=== PATIENT | female | born 1985 | race Caucasian/White ===

== ENCOUNTER 2017-01-24 09:25 | Emergency (ER) | payer OTHER ==
[2017-01-24] MEDS ORDERED: NORMAL SALINE 1000 ML 1,000 ML IV ONE (09:41)
[2017-01-24] MEDS ORDERED: ACETAMINOPHEN 325 MG TABLET PO ONE (09:41)
--- NOTE | 2017-01-24 09:42 | ER Document Report ---
ED Medical Screen (RME) - General Chief Complaint: Flank Pain Stated Complaint: RIGHT SIDE FLANK PAIN Time Seen by Provider: 01/24/17 09:38 Mode of Arrival: Ambulatory Information source: Patient Notes: This is a 31-year-old female who presents with fever and right flank pain. She states that for the past few days she has had dysuria and discomfort in her right flank. Last night she developed fevers and chills. She took ibuprofen at about 8:00 this morning. She has vomited today. She states this feels similar to her prior pyelonephritis 3 years ago. I have greeted and performed a rapid initial assessment of this patient. A comprehensive ED assessment and evaluation of the patient, analysis of test results and completion of the medical decision making process will be conducted by additional ED providers. TRAVEL OUTSIDE OF THE [place] IN LAST 30 DAYS: No - Related Data Allergies/Adverse Reactions: No Known Allergies Allergy (Verified 01/24/17 09:31) Past Medical History - Past Medical History Cardiac Medical History: Reports: Hx Hypercholesterolemia Denies: Hx Coronary Artery Disease, Hx Heart Attack, Hx Hypertension Pulmonary Medical History: Reports: Hx Asthma, Hx Bronchitis - in the past , Hx Pneumonia Denies: Hx COPD Neurological Medical History: Denies: Hx Cerebrovascular Accident, Hx Seizures Renal/ Medical History: Reports: Hx Ovarian Cysts. Denies: Hx Peritoneal Dialysis Musculoskeltal Medical History: Denies Hx Arthritis, Reports Hx Musculoskeletal Trauma Psychiatric Medical History: Reports: Hx Depression Traumatic Medical History: Reports: Hx Fractures Past Surgical History: Reports: Hx Cholecystectomy, Hx Orthopedic Surgery - Left Arm. Denies: Hx Hysterectomy, Hx Pacemaker - Immunizations Immunizations up to date: Yes Hx Diphtheria, Pertussis, Tetanus Vaccination: Yes Physical Exam - Vital signs Vitals: Temp Pulse Resp BP Pulse Ox 101.6 F H 125 H 20 122/79 97 01/24/17 09:31 01/24/17 09:31 01/24/17 09:31 01/24/17 09:31 01/24/17 09:31 - General Notes: somewhat ill appearing with chills, pleasant and conversant - Respiratory Respiratory status: No respiratory distress Breath sounds: Normal. No: Rales, Rhonchi, Wheezing - Cardiovascular Rhythm: Tachycardia Heart sounds: Normal auscultation, S1 appreciated, S2 appreciated Course - Vital Signs Vital signs: Temp Pulse Resp BP Pulse Ox 101.6 F H 125 H 20 122/79 97 01/24/17 09:31 01/24/17 09:31 01/24/17 09:31 01/24/17 09:31 01/24/17 09:31
[2017-01-24 10:16] LABS: HEMATOCRIT 38.8 % (36.0-47.0); HEMOGLOBIN 13.1 g/dL (12.0-15.5); HGB HCT DIFFERENCE 0.5; MEAN CORPUSCULAR HGB CONC 33.8 g/dL (32.0-36.0); MEAN CORPUSCULAR VOLUME 92 fl (80-97); RED BLOOD COUNT 4.24 10^6/uL (3.72-5.28); RED CELL DISTRIBUTION WIDTH 13.4 % (11.5-14.0); WHITE BLOOD COUNT 7.6 10^3/uL (4.0-10.5)
[2017-01-24 10:39] LABS: ALANINE AMINOTRANSFERASE 28 U/L (9-52); ALBUMIN 3.9 g/dL (3.5-5.0); ALKALINE PHOSPHATASE 115 U/L (38-126); ANION GAP 14 (5-19); ASPARTATE AMINO TRANSFERASE 26 U/L (14-36); BILIRUBIN,DIRECT 0.3 mg/dL (0.0-0.4); BILIRUBIN,TOTAL 0.7 mg/dL (0.2-1.3); BLOOD UREA NITROGEN 9 mg/dL (7-20); CALCIUM 9.7 mg/dL (8.4-10.2); CARBON DIOXIDE 18 mmol/L (22-30); CHLORIDE 105 mmol/L (98-107); CREATININE RESULT 0.72 mg/dL (0.52-1.25); GLUCOSE 120 mg/dL (75-110); POTASSIUM 3.8 mmol/L (3.6-5.0); TOTAL PROTEIN 6.7 g/dL (6.3-8.2)
[2017-01-24 10:52] LABS: BAND NEUTROPHILS % (MANUAL) 5 % (3-5); BASOPHILS % (MANUAL) 1 % (0-2); EOSINOPHILS % (MANUAL) 0 % (0-6); LYMPHOCYTES % (MANUAL) 4 % (13-45); TOTAL CELLS COUNTED 100
[2017-01-24 10:53] LABS: POLYCHROMASIA SLIGHT; TOXIC GRANULATION 1+; TOXIC VACUOLATION PRESENT
[2017-01-24] MEDS ORDERED: CEFTRIAXONE 1 GM/D5W RTU 50 ML IV ONE (10:59)
[2017-01-24] MEDS ORDERED: KETOROLAC TROMETHAMINE INJ/PF 30 MG/1 ML SDV IV ONE (10:59)
--- NOTE | 2017-01-24 11:00 | ER Document Report ---
ED GI/ - General Chief Complaint: Flank Pain Stated Complaint: RIGHT SIDE FLANK PAIN Time Seen by Provider: 01/24/17 09:38 Mode of Arrival: Ambulatory Information source: Patient Notes: Is a 31-year-old female who presents to the ER today for right flank pain, dysuria, fever, chills 3 days. Patient has a history of pyelonephritis and states that it feels exactly like that. She has never had a kidney stone. She denies any hematuria that she is noticed. She denies any abdominal pain. TRAVEL OUTSIDE OF THE [place] IN LAST 30 DAYS: No - Related Data Allergies/Adverse Reactions: No Known Allergies Allergy (Verified 01/24/17 09:31) Past Medical History - General Information source: Patient - Social History Smoking Status: Unknown if Ever Smoked Family History: Reviewed & Not Pertinent Patient has suicidal ideation: No Patient has homicidal ideation: No - Past Medical History Cardiac Medical History: Reports: Hx Hypercholesterolemia Denies: Hx Coronary Artery Disease, Hx Heart Attack, Hx Hypertension Pulmonary Medical History: Reports: Hx Asthma, Hx Bronchitis - in the past , Hx Pneumonia Denies: Hx COPD Neurological Medical History: Denies: Hx Cerebrovascular Accident, Hx Seizures Renal/ Medical History: Reports: Hx Ovarian Cysts. Denies: Hx Peritoneal Dialysis Musculoskeltal Medical History: Denies Hx Arthritis, Reports Hx Musculoskeletal Trauma Psychiatric Medical History: Reports: Hx Depression Traumatic Medical History: Reports: Hx Fractures Past Surgical History: Reports: Hx Cholecystectomy, Hx Orthopedic Surgery - Left Arm. Denies: Hx Hysterectomy, Hx Pacemaker - Immunizations Immunizations up to date: Yes Hx Diphtheria, Pertussis, Tetanus Vaccination: Yes Review of Systems - Review of Systems Constitutional: See HPI EENT: No symptoms reported Cardiovascular: No symptoms reported Respiratory: No symptoms reported Gastrointestinal: No symptoms reported Genitourinary: See HPI Female Genitourinary: No symptoms reported Musculoskeletal: No symptoms reported Skin: No symptoms reported Hematologic/Lymphatic: No symptoms reported Neurological/Psychological: No symptoms reported Physical Exam - Vital signs Vitals: Temp Pulse Resp BP Pulse Ox 101.6 F H 125 H 20 122/79 97 01/24/17 09:31 01/24/17 09:31 01/24/17 09:31 01/24/17 09:31 01/24/17 09:31 - Notes Notes: 1flonasemotrin 800 PHYSICAL EXAMINATION: GENERAL: Mildly ill-appearing, but in no acute distress. HEAD: Atraumatic, normocephalic. EYES: Pupils equal round and reactive to light, extraocular movements intact, sclera anicteric, conjunctiva are normal. NECK: Normal range of motion, supple without lymphadenopathy LUNGS: CTAB and equal. No wheezes rales or rhonchi. HEART: Regular rate and rhythm without murmurs ABDOMEN: Soft, no tenderness. No guarding, no rebound BACK: no vertebral tenderness, normal ROM GI/: Right CVA tenderness EXTREMITIES: Normal range of motion, no pitting edema. No cyanosis. NEUROLOGICAL: Cranial nerves grossly intact. Normal sensory/motor exams. PSYCH: Normal mood, normal affect. SKIN: Warm, Dry, normal turgor, no rashes or lesions noted Course - Re-evaluation Re-evalutation: 01/24/17 16:00 White count is normal today, patient is febrile, Tylenol reduced fever here in the emergency department, infection present on urinalysis with leukocytes and 98 white blood cells, patient technically met sepsis criteria on arrival with fever and tachycardia, however once the fever was reduced tachycardia was resolved, patient clinically looks only mildly ill-appearing and I think she will tolerate oral antibiotics well. She states that she was on oral antibiotics in the past for pyelonephritis which worked well for her. She has not vomited here in the emergency department. Lactic acid did get redrawn and was normal. - Vital Signs Vital signs: Temp Pulse Resp BP Pulse Ox 98.0 F 73 17 128/74 H 99 01/24/17 12:23 01/24/17 16:25 01/24/17 16:25 01/24/17 16:25 01/24/17 16:25 - Laboratory Result Diagrams: 01/24/17 09:58 01/24/17 09:58 Laboratory results interpreted by me: 01/24/17 01/24/17 01/24/17 09:45 09:58 09:58 Seg Neuts % (Manual) 90 H Lymphocytes % (Manual) 4 L Monocytes % (Manual) 0 L Abs Lymphs (Manual) 0.3 L Abs Monocytes (Manual) 0.0 L Carbon Dioxide 18 L Glucose 120 H Lactic Acid Urine Blood MODERATE H Ur Leukocyte Esterase MODERATE H 01/24/17 10:47 Seg Neuts % (Manual) Lymphocytes % (Manual) Monocytes % (Manual) Abs Lymphs (Manual) Abs Monocytes (Manual) Carbon Dioxide Glucose Lactic Acid 2.6 H Urine Blood Ur Leukocyte Esterase Discharge - Discharge Clinical Impression: Pyelonephritis Condition: Stable Disposition: HOME, SELF-CARE Instructions: Pyelonephritis (OM) Additional Instructions: Return immediately for any new or worsening symptoms. Follow up with primary care provider, call tomorrow to make followup appointment. Prescriptions: Ketorolac Tromethamine [Toradol 10 mg Tablet] 10 mg PO Q6HP PRN #30 tablet PRN Reason: Ciprofloxacin HCl [Cipro 500 mg Tablet] 500 mg PO BID #20 tablet Forms: Return to Work
[2017-01-24 11:04] LABS: APPEARANCE,URINE SLIGHTLY-CLOUDY; BILIRUBIN,URINE NEGATIVE (NEGATIVE); GLUCOSE, URINE NEGATIVE (NEGATIVE); KETONES,URINE NEGATIVE (NEGATIVE); LEUKOCYTE ESTERASE,URINE MODERATE (NEGATIVE); NITRITE,URINE NEGATIVE (NEGATIVE); PROTEIN,URINE NEGATIVE (NEGATIVE); URINE SPECIFIC GRAVITY 1.009; UROBILINOGEN,URINE NEGATIVE mg/dL (<2.0)
[2017-01-24] MEDS ORDERED: HYDROCODONE/ACETAMINOPHEN 5-325 MG 6 TAB/DSPK PO PRN (16:03)
[2017-01-24 16:26] VITALS: BP 128/74
--- NOTE | 2017-01-25 00:23 | ER Document Report ---
Doctor's Note Notes: 01/25/17 00:22 Asked by nurse to review positive blood cultures on patient was discharged earlier today. Gram-negative rods on blood cultures 2. Review of the chart shows that she initially was concerned about sepsis fever and pyelonephritis. At this point we contacted the patient at home and left a voicemail message to call us back.
== END 2017-01-24 16:25 | disposition home or self-care (01) ==
LOC: ER 09:25
DX: N12 Tubulo-interstitial nephritis, not specified as acute or chronic (principal); R10.9 Unspecified abdominal pain; R30.0 Dysuria; R50.9 Fever, unspecified; E78.00 Pure hypercholesterolemia, unspecified; Z90.49 Acquired absence of other specified parts of digestive tract
CPT/HCPCS: 99284; 96375; 96365; 36415; 87040; 87086; 84703; 85025; 87077; 87088; 80053; 81001; 87186; 83605; J1885; J7030; J0696

== ENCOUNTER 2017-01-25 01:02 | Inpatient (IN) | payer OTHER ==
[2017-01-25] MEDS ORDERED: CEFTRIAXONE INJ 1000 MG VIAL IV ONE (01:51)
--- NOTE | 2017-01-25 02:13 | ER Document Report ---
ED General - General Mode of Arrival: Ambulatory Information source: Patient TRAVEL OUTSIDE OF THE [place] IN LAST 30 DAYS: No <MARIA L MEEKS - Last Filed: 01/25/17 04:09> <LUCITA HAMILTON - Last Filed: 02/06/17 11:22> - General Chief Complaint: Flank Pain Stated Complaint: POSSIBLE KIDNEY INFECTION Time Seen by Provider: 01/25/17 01:19 Notes: Patient is a 31-year-old female that presents to the emergency department today secondary to abnormal blood cultures. Patient was seen earlier in the emergency department today for complaints of fevers and chills for 2 days with right kidney pain and dysuria. Patient's blood cultures grew out gram-negative rods so she was called and asked to return. Patient has had 1 dosage of her Cipro since discharge earlier today. (MARIA L MEEKS) - Related Data Allergies/Adverse Reactions: hydromorphone [From Dilaudid] Adverse Reaction (Verified 01/27/17 02:10) itching oxycodone [From Percocet] Adverse Reaction (Verified 01/27/17 02:10) N/V Home Medications: Current Home Medications Bupropion HCl [Wellbutrin Xl 150 mg 24hr Tablet] 1 tab PO DAILY 01/25/17 [ History] Past Medical History - General Information source: Patient, [facility] Records - Social History Smoking Status: Never Smoker Cigarette use (# per day): No Frequency of alcohol use: None Drug Abuse: None Lives with: Family Family History: Reviewed & Not Pertinent Patient has suicidal ideation: No Patient has homicidal ideation: No - Past Medical History Cardiac Medical History: Reports: Hx Hypercholesterolemia Pulmonary Medical History: Reports: Hx Asthma, Hx Bronchitis - in the past , Hx Pneumonia Renal/ Medical History: Reports: Hx Ovarian Cysts Musculoskeltal Medical History: Reports Hx Musculoskeletal Trauma Psychiatric Medical History: Reports: Hx Depression Traumatic Medical History: Reports: Hx Fractures Past Surgical History: Reports: Hx Cholecystectomy, Hx Orthopedic Surgery - Left Arm - Immunizations Immunizations up to date: Yes Hx Diphtheria, Pertussis, Tetanus Vaccination: Yes <MARIA L MEKES - Last Filed: 01/25/17 04:09> Review of Systems - Review of Systems Constitutional: See HPI, Chills, Fever, Other - gram negative rods in blood culture EENT: No symptoms reported Cardiovascular: No symptoms reported Respiratory: No symptoms reported Gastrointestinal: See HPI, Nausea Genitourinary: See HPI, Burning, Flank pain - R Female Genitourinary: No symptoms reported Musculoskeletal: No symptoms reported Skin: No symptoms reported Hematologic/Lymphatic: No symptoms reported Neurological/Psychological: No symptoms reported <MARIA L MEEKS - Last Filed: 01/25/17 04:09> Physical Exam <MARIA L MEEKS - Last Filed: 01/25/17 04:09> <JOYLUCITA - Last Filed: 02/06/17 11:22> - Vital signs Vitals: Temp Pulse Resp BP Pulse Ox 98.7 F 103 H 16 126/85 H 100 01/25/17 01:06 01/25/17 01:06 01/25/17 01:06 01/25/17 01:06 01/25/17 01:06 - Notes Notes: Physical Exam: General: Alert, appears uncomfortable. HEENT: Normocephalic. Atraumatic. PERRL. Extraocular movements intact. Oropharynx clear. Neck: Supple. Non-tender. Respiratory: No respiratory distress. Clear and equal breath sounds bilaterally. Cardiovascular: Regular rate and rhythm. Abdominal: Normal Inspection. Non-tender. No distension. Normal Bowel Sounds. Back: Non-tender. No deformity or step off. Extremities: Moves all four extremities. Upper extremities: Normal inspection. Normal ROM. Lower extremities: Normal inspection. No edema. Normal ROM. Neurological: Normal cognition. AAOx4. Normal speech. Psychological: Normal affect. Normal Mood. Skin: Warm. Dry. Normal color. (MARIA L MEEKS) Course <MARIA L MEEKS - Last Filed: 01/25/17 04:09> - Laboratory Result Diagrams: 01/26/17 04:04 01/26/17 04:04 <JOYLUCITA - Last Filed: 02/06/17 11:22> - Re-evaluation Re-evalutation: 01/25/17 03:25 Patient was seen and evaluated here earlier this evening and then discharged later in the evening she had 2 gram-negative alondra blood cultures come back positive site contact her to come back to the emergency department. She states that she started having rigors about one half days ago and right-sided flank pain achiness and burning with urination. Nauseated but no vomiting. Earlier she was febrile normal lactic acid no white count elevation. States she does not feel any better still complaining of low back pain nausea had several episodes of vomiting tonight is afebrile but still tachycardic. Took one ciprofloxacin prior to arrival. She is not hypotensive. Went ahead and gave her IV antibiotics and will admit her to the hospital for acute pyelonephritis and bacteremia (LUCITA HAMILTON) - Vital Signs Vital signs: Temp Pulse Resp BP Pulse Ox 98.2 F 70 14 124/73 98 01/28/17 10:01 01/28/17 10:01 01/28/17 10:01 01/28/17 10:01 01/28/17 10:01 - Laboratory Laboratory results interpreted by me: 01/25/17 01/25/17 04:50 04:50 Hgb 11.9 L Hct 34.7 L Plt Count 111 L Seg Neutrophils % 83.3 H Lymphocytes % 8.7 L Sodium 136.2 L Potassium 3.5 L Chloride 109 H Carbon Dioxide 19 L BUN 6 L Critical Care Note - Critical Care Note Total time excluding time spent on procedures (mins): 45 <LUCITA HAMILTON - Last Filed: 02/06/17 11:22> Discharge <MARIA L MEEKS - Last Filed: 01/25/17 04:09> - Discharge Admitting Provider: Hospitalist Unit Admitted: IMCU <LUCITA HAMILTON - Last Filed: 02/06/17 11:22> - Discharge Clinical Impression: Acute pyelonephritis, Bacteremia Condition: Stable Disposition: ADMITTED INPATIENT Scribe Attestation: 01/25/17 04:30 I personally performed the services described in the documentation reviewed the documentation recorded by my scribe in my presence and it accurately and completely records my words and actions (LUCITA HAMILTON) Scribe Documentation - Scribe Written by Ghislaine:: Ghislaine Perdomo, [id number] 01/25/2017 acting as scribe for :: Joy <MARIA L MEEKS - Last Filed: 01/25/17 04:09>
[2017-01-25] MEDS ORDERED: FENTANYL CITRATE INJ/PF 100 MCG/2 ML AMPUL IV ONE (03:03)
[2017-01-25] MEDS ORDERED: ONDANSETRON HCL INJ/PF 4 MG/2 ML SDV IV ONE (03:03)
[2017-01-25] MEDS: RINGERS SOLUTION,LACTATED 1,000 ML IV PRN ×2 (03:21→03:57)
[2017-01-25 05:07] LABS: ABSOLUTE EOSINOPHILS # (AUTO) 0.1 10^3/uL (0.0-0.6); ABSOLUTE LYMPHOCYTES (AUTO) 0.7 10^3/uL (0.5-4.7); ABSOLUTE MONOCYTES (AUTO) 0.5 10^3/uL (0.1-1.4); ABSOLUTE NEUT (AUTO) 6.7 10^3/uL (1.7-8.2); BASOPHILS % (AUTO) 0.4 % (0-2); EOSINOPHILS % (AUTO) 1.3 % (0-6); HEMATOCRIT 34.7 % (36.0-47.0); HEMOGLOBIN 11.9 g/dL (12.0-15.5); LYMPHOCYTES % (AUTO) 8.7 % (13-45); MEAN CORPUSCULAR HEMOGLOBIN 31.4 pg (27.0-33.4); MEAN CORPUSCULAR HGB CONC 34.2 g/dL (32.0-36.0); MEAN CORPUSCULAR VOLUME 92 fl (80-97); MONOCYTES % (AUTO) 6.3 % (3-13); RED BLOOD COUNT 3.79 10^6/uL (3.72-5.28); RED CELL DISTRIBUTION WIDTH 13.6 % (11.5-14.0); SEGMENTED NEUTROPHILS % (AUTO) 83.3 % (42-78); WHITE BLOOD COUNT 8.1 10^3/uL (4.0-10.5)
[2017-01-25 05:21] LABS: ANION GAP 8 (5-19); BLOOD UREA NITROGEN 6 mg/dL (7-20); CALCIUM 8.5 mg/dL (8.4-10.2); CARBON DIOXIDE 19 mmol/L (22-30); CHLORIDE 109 mmol/L (98-107); CREATININE RESULT 0.59 mg/dL (0.52-1.25); GLUCOSE 93 mg/dL (75-110); POTASSIUM 3.5 mmol/L (3.6-5.0); SODIUM 136.2 mmol/L (137-145)
[2017-01-25] MEDS: ENOXAPARIN SODIUM INJ 40 MG/0.4 ML DISP.SYRIN SUBCUT SCH (07:53)
[2017-01-25] MEDS: ACETAMINOPHEN 325 MG TABLET PO PRN ×2 (07:53→15:43)
[2017-01-25] MEDS ORDERED: NICOTINE 21 MG/24 HR PATCH.TD24 TD PRN (08:26)
--- NOTE | 2017-01-25 08:43 | PDOC H&P ---
History of Present Illness Admission Date/PCP: 01/25/17 07:34 PCP None Patient complains of: right flank pain, + blood cultures History of Present Illness: DANG BUENO is a 31 year old female with occasional urinary tract infection, but no history of nephrolithiasis or pyelonephritis who was seen in the emergency room on the 13th of this month and diagnosed with urinary tract infection and discharged home with prescription for oral Cipro. Has taken one dosage of the prescribed Cipro. Was called to return to the emergency room when blood cultures were positive for gram-negative rods. She continues to complain of combination cramping and sharp right flank pain, increased with much of any movement, along with dysuria. She has had fever and shaking chills for the past 2 days. Patient has been discussed with emergency room physician who evaluated the patient. Currently resting quietly, stating she does feel a bit better since receiving pain medicine. Laboratory results are listed in [employer] and are reviewed. Social history/personal habits: . Has children. 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 Pack of cigarettes per day. 2 beers per day. No illicit drug use. No known drug allergies. Home medications initially autopopulated into [employer] may not accurately reflect patient's true medications, dosages, and/or frequencies. 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 REVIEW OF SYSTEMS: Constitutional: See history and present illness. Eyes: Wears glasses ENT: No swallowing problems or complaints. Denies hearing loss. Pulmonary: No current complaints. Cardiovascular: No current complaints, including chest pain. Gastrointestinal: See history and present illness. Skin: No current complaints, including rashes. Hematologic: Denies easy bruising. Neurologic: No current complaints, including numbness or tingling. Musculoskeletal: No current or chronic joint complaints, such as arthritis. Psychiatric: Mild anxiety and depression. Denies suicidal or homicidal ideation. Endocrine: No current complaints, including polyuria. Genitourinary: Mild dysuria. PHYSICAL EXAMINATION: 5 feet 2 inches tall. 64.1 kg.Temperature 100.0. Pulse 102 and regular. Blood pressure 114/81. Respirations are 24 and unlabored. 96% saturation on room air. Well-nourished well-developed female who appears not to feel very well. Pleasant awake alert and cooperative. Father is present at her side; patient approves. Floor nurse San[place] is present. Skin is warm and dry. No grossly obvious evidence of rash in areas of skin examined. No subcutaneous nodules palpated. ENT: Hearing grossly normal to normal conversation. Tongue midline on protrusion pink and slightly tacky. Eyes: No scleral icterus. Pupils equal and reactive to light at 4 mm. [place] conjunctivae. Neck is supple and nontender to gentle active range of motion and palpation. Midline trachea. No palpable thyroid nodule mass enlargement or tenderness. Lymphatic: No palpable cervical or clavicular nodes. Neck and lymphatic exams limited by patient body habitus. Psychiatric: Reasonable insight into acute and chronic medical issues. Oriented to time location and why here. Lungs: Auscultation reveals clear and equal breath sounds bilaterally. No use of accessory respiratory muscles. Cardiovascular: Heart regular rate and rhythm, without gallop murmur or rub. No carotid or abdominal aortic bruits. No ankle or pedal edema. Palpable dorsalis pedis pulses. Abdomen:soft mildly distended with positive bowel sounds. Mild right upper quadrant tenderness, and right flank tenderness, without guarding or peritoneal signs. Unable to adequately evaluate abdomen for masses or organomegaly due to distention and discomfort. Extremities: Feet are warm and dry. No calf tenderness to compression. No grossly obvious visual evidence of calf swelling. Gentle manipulation of lower extremities fails to reveal any obvious evidence of injury or instability to knees hips or ankles. Neurologic: Moves upper extremities grossly normally. Patellar reflexes absent. Absent Babinski. Light touch is intact at feet. Dorsiflexion and plantarflexion of feet 5 / 5 and symmetric. Past Medical History Cardiac Medical History: Reports: Hyperlipidema - History of; never treated for same. Follow-up levels unremarkable. Denies: Congestive Heart Failure, Coronary Artery Disease, DVT, Myocardial Infarction, Hypertension, Pulmonary Embolism Pulmonary Medical History: Reports: Asthma - Exercise-induced, Bronchitis - in the past , Pneumonia Denies: Chronic Obstructive Pulmonary Disease (COPD), Sleep Apnea EENT Medical History: Reports: Eyes - Glasses Denies: Ears, Throat Neurological Medical History: Denies: Hemorrhagic CVA, Ischemic CVA, Seizures Endocrine Medical History: Denies: Diabetes Mellitus Type 1, Diabetes Mellitus Type 2, Hyperthyroidism, Hypothyroidism Renal/ Medical History: Reports: Other - Occasional urinary tract infection. GI Medical History: Denies: Cirrhosis, Gastroesophageal Reflux Disease, Hepatitis, Peptic Ulcer Disease Musculoskeltal Medical History: Denies: Arthritis Psychiatric Medical History: Reports: Depression - Denies suicidal or homicidal ideation., General Anxiety Disorder, Tobacco Dependency Denies: Alcohol Dependency, Substance Abuse Hematology: Reports: Anemia - after labor Infectious Medical History: Denies: Clostridium Difficile, Hepatitis B, Hepatitis C, Methicillin- Resistant Staph Aureus Past Surgical History Past Surgical History: Reports: Cholecystectomy, Orthopedic Surgery - Left Arm Social History Information Source: Patient, Emergency Med Personnel, [facility] Records Lives with: Family Smoking Status: Current Every Day Smoker Cigarettes Packs Per Day: 1 Frequency of Alcohol Use: Occasional Hx Recreational Drug Use: No Drugs: None Hx Prescription Drug Abuse: No - Advance Directive Resuscitation Status: Full Code Surrogate healthcare decision maker:: Mother Family History Family History: Reviewed & Not Pertinent Parental Family History Reviewed: Yes - Parents alive. Father with "old age problems." Children Family History Reviewed: Yes - Healthy Sibling(s) Family History Reviewed.: Yes - Healthy Medication/Allergy Home Medications: Bupropion HCl [Wellbutrin Xl 150 mg 24hr Tablet] 1 tab PO DAILY 01/25/17 Allergies/Adverse Reactions: No Known Allergies Allergy (Verified 01/24/17 09:31) Physical Exam Vital Signs: Temp Pulse Resp BP Pulse Ox 102.9 F H 110 H 18 124/73 96 01/25/17 06:50 01/25/17 07:25 01/25/17 07:25 01/25/17 07:25 01/25/17 07:25 Assessment & Plan - Diagnosis (1) Hypokalemia Is this a current diagnosis for this admission?: YesPlan: Potassium supplement. (2) Tobacco dependency Is this a current diagnosis for this admission?: YesPlan: As needed nicotine patch. (3) Gram-negative bacteremia Is this a current diagnosis for this admission?: Yes (4) Acute pyelonephritis Is this a current diagnosis for this admission?: YesPlan: CT scan of abdomen and pelvis without contrast. IV antibiotics. I have strongly encouraged patient not to get out of bed without notifying staff , to avoid a fall with injury. Knee high SCDs for DVT prophylaxis, along with subcutaneous Lovenox. Impression and plans were discussed with patient and father, both of whom concur. Time spent in evaluation and management of patient: 59 minutes. - Inpatient Certification Based on my medical assessment, after consideration of the patient's comorbidities, presenting symptoms, or acuity I expect that the services needed warrant INPATIENT care.: Yes I certify that my determination is in accordance with my understanding of Medicare's requirements for reasonable and necessary INPATIENT services [42 CFR 412.3e].: Yes Medical Necessity: Need Close Monitoring Due to Risk of Patient Decompensation, Need for IV Antibiotics, Risk of Complication if Not Cared For in Hospital Post Hospital Care: D/C or Transfer Summary
[2017-01-25] MEDS ORDERED: POTASSIUM CHLORIDE 20 MEQ/15 ML UDCUP PO ONE (09:00)
--- NOTE | 2017-01-25 10:14 | RADIOLOGY REPORT (SQ) ---
EXAM DESCRIPTION: CT ABD/PELVIS NO ORAL OR IV COMPLETED DATE/TIME: 01/25/2017 9:54 am REASON FOR STUDY: rt pyelo COMPARISON: None. TECHNIQUE: CT scan of the abdomen and pelvis performed without intravenous or oral contrast. Images reviewed with lung, soft tissue, and bone windows. Reconstructed coronal and sagittal MPR images revi ewed. All images stored on PACS. All CT scanners at this facility use dose modulation, iterative reconstruction, and/or weight based d osing when appropriate to reduce radiation dose to as low as reasonably achievable (ALARA). [facility]: Dose Right [facility]: CareDose [facility]: Dose Right [facility]: Teradose 4D [facility]: [employer] RADIATION DOSE: Up-to-date CT equipment and radiation dose reduction techniques were employed. CTDIv ol: 5.7 mGy. DLP: 319 mGy-cm.mGy. LIMITATIONS: None. FINDINGS: LOWER CHEST: Dependent subsegmental atelectatic changes noted. No focal infiltrates. No pericardial or pleural effusions. No worrisome nodules. NON-CONTRASTED LIVER, SPLEEN, ADRENALS: Evaluation limited by lack of IV contrast. No identified sign ificant masses. PANCREAS: No masses. No peripancreatic inflammatory changes. GALLBLADDER: Surgically absent. RIGHT KIDNEY AND URETER: No suspicious masses. Assessment limited by lack of IV contrast. No signif icant calcifications. No hydronephrosis or hydroureter. LEFT KIDNEY AND URETER: No suspicious masses. Assessment limited by lack of IV contrast. No signifi cant calcifications. No hydronephrosis or hydroureter. AORTA AND RETROPERITONEUM: No aneurysm. No retroperitoneal masses or adenopathy. BOWEL AND PERITONEAL CAVITY: No obvious masses or inflammatory changes. No free fluid. APPENDIX: Normal. PELVIS, BLADDER, AND ABDOMINAL WALL:No abnormal masses. No free fluid. Bladder normal. BONES: No acute or suspicious osseous abnormality. OTHER: No other significant finding. IMPRESSION: No acute or significant abnormality identified on this noncontrast study of the abdomen pelvis. TECHNICAL DOCUMENTATION: JOB ID: [id number] Quality ID # [id number]: Final reports with documentation of one or more dose reduction techniques (e.g., Au tomated exposure control, adjustment of the mA and/or kV according to patient size, use of iterative reconstruction technique) 2010 [employer]- All Rights Reserved
[2017-01-25] MEDS: HYDROMORPHONE HCL INJ/PF 2 MG/ML AMPULE IV PRN ×3 (13:21→22:42)
[2017-01-25] MEDS: ONDANSETRON HCL INJ/PF 4 MG/2 ML SDV IV PRN ×2 (13:22→22:42)
--- NOTE | 2017-01-25 16:03 | PDOC PROGRESS REPORT ---
Subjective Progress Note for:: 01/25/17 Subjective:: Patient has continued high fevers. She denies nausea, vomiting, flank pain, abdominal pain. She is tolerating oral intake well. Physical Exam Vital Signs: Temp Pulse Resp BP Pulse Ox 102.9 F H 110 H 18 124/73 96 01/25/17 06:50 01/25/17 07:25 01/25/17 07:25 01/25/17 07:25 01/25/17 07:25 GENERAL: No acute distress HEENT: Conjunctiva clear, nonicteric, moist mucous membranes, no JVD, midline trachea RESPIRATORY: Clear to auscultation bilaterally, no wheezes, no rhonchi CARDIAC: Regular rate and rhythm, no murmurs/gallops/rubs ABDOMEN: Soft, nondistended, nontender, positive bowel sounds, no rebound, no guarding EXTREMETIES: No edema, cyanosis, clubbing NEUROLOGIC: Alert, oriented to person/place/time, CN's grossly intact, no focal deficits SKIN: No rash, wounds PSYCH: Normal mood, normal affect Results Impressions: Abdomen/Pelvis CT 01/25/17 00:00 IMPRESSION: No acute or significant abnormality identified on this noncontrast study of the abdomen pelvis. Assessment & Plan - Diagnosis (1) Sepsis Is this a current diagnosis for this admission?: YesPlan: Secondary to urinary tract infection and bacteremia (2) UTI (urinary tract infection) Is this a current diagnosis for this admission?: YesPlan: Discontinue Rocephin. Start IV cefepime pending further cultures. CT abdomen/pelvis shows no evidence of pyelonephritis or perinephric abscess. (3) Gram-negative bacteremia Is this a current diagnosis for this admission?: YesPlan: IV cefepime pending further cultures. (4) Hypokalemia Is this a current diagnosis for this admission?: YesPlan: Replace as needed. Repeat potassium and magnesium level in the morning. - Time Time Spent with patient: 35 or more minutes
[2017-01-25] MEDS ORDERED: CEFEPIME 1 GM/D5W RTU 1 GM/50 ML RTUPB IV ONE (17:00)
[2017-01-25] MEDS: CEFEPIME HCL 1 GM in DEXTROSE 5%-WATER 50 ML IV SCH (18:41)
[2017-01-25] MEDS ORDERED: CEFTRIAXONE 1 GM/D5W RTU 1 GM/50 ML RTUPB IV SCH (22:00)
[2017-01-26] MEDS: ACETAMINOPHEN 325 MG TABLET PO PRN ×3 (00:56→20:24)
[2017-01-26 04:49] LABS: ABSOLUTE EOSINOPHILS # (AUTO) 0.1 10^3/uL (0.0-0.6); ABSOLUTE LYMPHOCYTES (AUTO) 1.5 10^3/uL (0.5-4.7); ABSOLUTE MONOCYTES (AUTO) 0.8 10^3/uL (0.1-1.4); ABSOLUTE NEUT (AUTO) 6.4 10^3/uL (1.7-8.2); BASOPHILS % (AUTO) 0.4 % (0-2); EOSINOPHILS % (AUTO) 0.8 % (0-6); HEMATOCRIT 36.2 % (36.0-47.0); HEMOGLOBIN 12.3 g/dL (12.0-15.5); HGB HCT DIFFERENCE 0.7; MEAN CORPUSCULAR HEMOGLOBIN 30.9 pg (27.0-33.4); MEAN CORPUSCULAR HGB CONC 33.9 g/dL (32.0-36.0); MEAN CORPUSCULAR VOLUME 91 fl (80-97); MONOCYTES % (AUTO) 9.4 % (3-13); RED BLOOD COUNT 3.96 10^6/uL (3.72-5.28); RED CELL DISTRIBUTION WIDTH 13.7 % (11.5-14.0); SEGMENTED NEUTROPHILS % (AUTO) 72.4 % (42-78); WHITE BLOOD COUNT 8.8 10^3/uL (4.0-10.5)
[2017-01-26 05:08] LABS: ALANINE AMINOTRANSFERASE 27 U/L (9-52); ALBUMIN 3.2 g/dL (3.5-5.0); ALKALINE PHOSPHATASE 82 U/L (38-126); ANION GAP 10 (5-19); ASPARTATE AMINO TRANSFERASE 18 U/L (14-36); BILIRUBIN,DIRECT 0.3 mg/dL (0.0-0.4); BILIRUBIN,TOTAL 0.5 mg/dL (0.2-1.3); BLOOD UREA NITROGEN 5 mg/dL (7-20); CALCIUM 9.3 mg/dL (8.4-10.2); CARBON DIOXIDE 21 mmol/L (22-30); CHLORIDE 105 mmol/L (98-107); CREATININE RESULT 0.64 mg/dL (0.52-1.25); GLUCOSE 78 mg/dL (75-110); MAGNESIUM 1.8 mg/dL (1.6-2.3); POTASSIUM 3.8 mmol/L (3.6-5.0); SODIUM 136.4 mmol/L (137-145); TOTAL PROTEIN 5.9 g/dL (6.3-8.2)
[2017-01-26] MEDS ORDERED: CEFEPIME 1 GM/D5W RTU 1 GM/50 ML RTUPB IV SCH (06:00)
[2017-01-26] MEDS: CEFEPIME HCL 1 GM in DEXTROSE 5%-WATER 50 ML IV SCH ×2 (06:53→17:05)
[2017-01-26] MEDS: ONDANSETRON HCL INJ/PF 4 MG/2 ML SDV IV PRN ×2 (07:02→16:32)
[2017-01-26] MEDS: HYDROMORPHONE HCL INJ/PF 2 MG/ML AMPULE IV PRN ×3 (07:02→21:45)
[2017-01-26] MEDS ORDERED: (PENDING PHARMACY ID) (Bupropion Hcl [Wellbutrin Xl 150 Mg 24hr Tablet] 1 TAB) PO SCH (10:00)
[2017-01-26] MEDS: ENOXAPARIN SODIUM INJ 40 MG/0.4 ML DISP.SYRIN SUBCUT SCH (10:07)
[2017-01-26] MEDS: BUPROPION HCL 75 MG TABLET PO SCH ×2 (10:07→20:24)
--- NOTE | 2017-01-26 11:26 | PDOC PROGRESS REPORT ---
Subjective Progress Note for:: 01/26/17 Subjective:: Patient has continued fever overnight. She denies nausea, vomiting, flank pain , abdominal pain. Physical Exam Vital Signs: Temp Pulse Resp BP Pulse Ox 98.3 F 75 20 92/55 L 96 01/26/17 04:13 01/26/17 04:13 01/26/17 04:13 01/26/17 04:13 01/26/17 04:13 Intake & Output 01/25/17 01/26/17 01/27/17 06:59 06:59 06:59 Intake Total 1100 500 Balance 1100 500 Weight 64 kg GENERAL: No acute distress HEENT: Conjunctiva clear, nonicteric, moist mucous membranes, no JVD, midline trachea RESPIRATORY: Clear to auscultation bilaterally, no wheezes, no rhonchi CARDIAC: Regular rate and rhythm, no murmurs/gallops/rubs ABDOMEN: Soft, nondistended, nontender, positive bowel sounds, no rebound, no guarding EXTREMETIES: No edema, cyanosis, clubbing NEUROLOGIC: Alert, oriented to person/place/time, CN's grossly intact, no focal deficits SKIN: No rash, wounds PSYCH: Normal mood, normal affect Results Laboratory Results: 01/26/17 04:04 01/26/17 04:04 01/26/17 01/26/17 04:04 04:04 WBC 8.8 RBC 3.96 Hgb 12.3 Hct 36.2 MCV 91 MCH 30.9 MCHC 33.9 RDW 13.7 Plt Count 113 L Seg Neutrophils % 72.4 Lymphocytes % 17.0 Monocytes % 9.4 Eosinophils % 0.8 Basophils % 0.4 Absolute Neutrophils 6.4 Absolute Lymphocytes 1.5 Absolute Monocytes 0.8 Absolute Eosinophils 0.1 Absolute Basophils 0.0 Sodium 136.4 L Potassium 3.8 Chloride 105 Carbon Dioxide 21 L Anion Gap 10 BUN 5 L Creatinine 0.64 Est GFR ( Amer) > 60 Est GFR (Non-Af Amer) > 60 Glucose 78 Calcium 9.3 Magnesium 1.8 Total Bilirubin 0.5 AST 18 ALT 27 Alkaline Phosphatase 82 Total Protein 5.9 L Albumin 3.2 L Impressions: Abdomen/Pelvis CT 01/25/17 00:00 IMPRESSION: No acute or significant abnormality identified on this noncontrast study of the abdomen pelvis. Assessment & Plan - Diagnosis (1) Sepsis Is this a current diagnosis for this admission?: YesPlan: Secondary to urinary tract infection and bacteremia. (2) UTI (urinary tract infection) Is this a current diagnosis for this admission?: YesPlan: Continue IV cefepime pending further cultures. CT abdomen/pelvis shows no evidence of pyelonephritis or perinephric abscess. (3) Gram-negative bacteremia Is this a current diagnosis for this admission?: YesPlan: IV cefepime pending further cultures. (4) Hypokalemia Is this a current diagnosis for this admission?: Yes - Time Time Spent with patient: 25-34 minutes Anticipated discharge: Home Within: within 48 hours
[2017-01-26] MEDS ORDERED: IBUPROFEN 600 MG TABLET PO ONE (12:30)
[2017-01-27] MEDS ORDERED: HYDROXYZINE HCL 10 MG TABLET PO ONE (01:15)
[2017-01-27] MEDS ORDERED: MORPHINE SULFATE 10 MG/ML INJ IV PRN (02:11)
[2017-01-27] MEDS: ACETAMINOPHEN 325 MG TABLET PO PRN ×2 (03:37→18:16)
[2017-01-27] MEDS: CEFEPIME HCL 1 GM in DEXTROSE 5%-WATER 50 ML IV SCH ×2 (06:28→18:17)
[2017-01-27] MEDS: ENOXAPARIN SODIUM INJ 40 MG/0.4 ML DISP.SYRIN SUBCUT SCH (09:21)
[2017-01-27] MEDS: BUPROPION HCL 75 MG TABLET PO SCH ×2 (09:21→21:52)
--- NOTE | 2017-01-27 11:05 | RADIOLOGY REPORT (SQ) ---
EXAM DESCRIPTION: CT ABD/PELVIS WITH IV ONLY COMPLETED DATE/TIME: 01/27/2017 10:31 am REASON FOR STUDY: sepsis, UTI COMPARISON: 01/25/2017 TECHNIQUE: CT scan of the abdomen and pelvis performed using helical scanning technique with dynamic intravenous contrast injection. No oral contrast. Images reviewed with lung, soft tissue, and bone windows. Reconstructed coronal and sagittal MPR images reviewed. Delayed images for evaluation of the urinary system also acquired. All images stored on PACS. All CT scanners at this facility use dose modulation, iterative reconstruction, and/or weight based d osing when appropriate to reduce radiation dose to as low as reasonably achievable (ALARA). [facility]: Dose Right [facility]: CareDose [facility]: Dose Right [facility]: Teradose 4D [facility]: [employer] CONTRAST TYPE AND DOSE: contrast/concentration: Isovue 370.00 mg/ml; Total Contrast Delivered: 66.0 ml; Total Saline Delivered: 57.8 ml RENAL FUNCTION: Creatinine 0.6 BUN 5 RADIATION DOSE: Up-to-date CT equipment and radiation dose reduction techniques were employed. CTDIv ol: 4.7 - 5.5 mGy. DLP: 531 mGy-cm.. LIMITATIONS: None. FINDINGS: LOWER CHEST: There is subsegmental atelectasis in the lung bases. Minimal pleural effusio ns are seen. LIVER: Normal size. No masses or dilated ducts. SPLEEN: Normal size. No focal lesions. PANCREAS: No masses. No significant calcifications. No adjacent inflammation or peripancreatic fluid collections. Pancreatic duct not dilated. GALLBLADDER: Surgically absent. ADRENAL GLANDS: No significant masses or asymmetry. RIGHT KIDNEY AND URETER: There is a 4 cm slightly hypodense lesion in the upper pole of the right kid juan posteriorly. This is fairly homogeneous on the postcontrast images and less well-defined on the precontrast images. This shows a density of 92 Hounsfield units on the postcontrast images. No sig nificant calcifications. No hydronephrosis or hydroureter. LEFT KIDNEY AND URETER: No solid masses. No significant calcifications. No hydronephrosis or hydr oureter. AORTA AND VESSELS: No aneurysm. No dissection. Renal arteries, SMA, celiac without stenosis. RETROPERITONEUM: There are scattered small periaortic nodes. These are sub cm in size. BOWEL AND PERITONEAL CAVITY: No masses or inflammatory changes. No free fluid or peritoneal masses. APPENDIX: Normal. PELVIS: The uterus is normal. Urinary bladder is unremarkable. There is no adnexal mass or fluid co llection. ABDOMINAL WALL: No masses. No hernias. BONES: No significant or acute findings. OTHER: No other significant finding. IMPRESSION: There is a slightly hypodense lesion in the upper pole the right kidney as described. T his does not have apparent particularly suggestive of pyelonephritis. The appearance is not typical for renal cell carcinoma. Consider ultrasound for further evaluation. TECHNICAL DOCUMENTATION: JOB ID: [id number] Quality ID # 436: Final reports with documentation of one or more dose reduction techniques (e.g., Au tomated exposure control, adjustment of the mA and/or kV according to patient size, use of iterative reconstruction technique) 2010 [employer]- All Rights Reserved
--- NOTE | 2017-01-27 13:58 | PDOC PROGRESS REPORT ---
Subjective Progress Note for:: 01/27/17 Subjective:: Patient has continued fever overnight. For the past 24 hours she has been having low back pain as well. She denies nausea or vomiting. She is eating and drinking well. Physical Exam Vital Signs: Temp Pulse Resp BP Pulse Ox 99.3 F 84 19 113/76 98 01/27/17 11:50 01/27/17 11:50 01/27/17 11:50 01/27/17 11:50 01/27/17 11:50 Intake & Output 01/26/17 01/27/17 01/28/17 06:59 06:59 06:59 Intake Total 1100 2080 922 Balance 1100 2080 922 Weight 64 kg 61.5 kg GENERAL: No acute distress HEENT: Conjunctiva clear, nonicteric, moist mucous membranes, no JVD, midline trachea RESPIRATORY: Clear to auscultation bilaterally, no wheezes, no rhonchi CARDIAC: Regular rate and rhythm, no murmurs/gallops/rubs ABDOMEN: Soft, nondistended, nontender, positive bowel sounds, no rebound, no guarding EXTREMETIES: No edema, cyanosis, clubbing NEUROLOGIC: Alert, oriented to person/place/time, CN's grossly intact, no focal deficits SKIN: No rash, wounds PSYCH: Normal mood, normal affect Results Laboratory Results: 01/26/17 04:04 01/26/17 04:04 Impressions: Abdomen/Pelvis CT 01/27/17 00:00 IMPRESSION: There is a slightly hypodense lesion in the upper pole the right kidney as described. This does not have apparent particularly suggestive of pyelonephritis. The appearance is not typical for renal cell carcinoma. Consider ultrasound for further evaluation. Assessment & Plan - Diagnosis (1) Sepsis Is this a current diagnosis for this admission?: YesPlan: Secondary to urinary tract infection and bacteremia. (2) UTI (urinary tract infection) Is this a current diagnosis for this admission?: YesPlan: Continue IV cefepime pending further cultures. CT abdomen/pelvis without contrast on 01/25/2017 shows no evidence of pyelonephritis or perinephric abscess. CT abdomen/pelvis with contrast 01/27/2017 shows abnormality in the upper pole of the right kidney posteriorly that is not definitely suggestive of pyelonephritis or mass. Recommended renal ultrasound. Check renal ultrasound. (3) Gram-negative bacteremia Is this a current diagnosis for this admission?: YesPlan: Blood cultures growing E. coli sensitive to cefepime. Continue IV cefepime. (4) Hypokalemia Is this a current diagnosis for this admission?: Yes - Time Time Spent with patient: 35 or more minutes
[2017-01-27] MEDS: ONDANSETRON HCL INJ/PF 4 MG/2 ML SDV IV PRN (18:16)
--- NOTE | 2017-01-27 21:51 | RADIOLOGY REPORT (SQ) ---
EXAM DESCRIPTION: U/S RETROPERITON LTD COMPLETED DATE/TIME: 01/27/2017 8:35 pm REASON FOR STUDY: abn CT right kidney COMPARISON: CT same date TECHNIQUE: Dynamic and static grayscale images acquired of the kidneys and bladder and recorded on P ACS. Additional selected color Doppler and spectral images recorded. LIMITATIONS: None. FINDINGS: RIGHT KIDNEY: Normal size. 3.4 cm rounded area of slightly increased echogenicity in th e upper pole of the right kidney. No hydronephrosis. No calcifications. LEFT KIDNEY: Normal size. Normal echogenicity. No solid or suspicious masses. No hydronephrosi s. No calcifications. BLADDER: No masses. OTHER FINDINGS: No other significant finding. IMPRESSION: 3.4 cm rounded area of slightly increased echogenicity in the upper pole of the right ki dney which correlates with the finding on CT scan. This could reflect a focal area of pyelonephritis in the appropriate clinical setting. Short interval follow-up imaging is recommended following fredy tment to confirm resolution. TECHNICAL DOCUMENTATION: JOB ID: [id number]- All Rights Reserved
[2017-01-28] MEDS: CEFEPIME HCL 1 GM in DEXTROSE 5%-WATER 50 ML IV SCH (05:19)
[2017-01-28] MEDS: ENOXAPARIN SODIUM INJ 40 MG/0.4 ML DISP.SYRIN SUBCUT SCH (08:07)
[2017-01-28] MEDS: BUPROPION HCL 75 MG TABLET PO SCH (09:05)
[2017-01-28 10:03] VITALS: BP 124/73
--- NOTE | 2017-01-28 11:54 | PDOC DISCHARGE SUMMARY ---
General - Admit/Disc Date/PCP Admission Date/Primary Care Provider: 01/25/17 07:34 Discharge Date: 01/28/17 - Discharge Diagnosis (1) Sepsis Is this a current diagnosis for this admission?: Yes (2) UTI (urinary tract infection) Is this a current diagnosis for this admission?: Yes (3) Gram-negative bacteremia Is this a current diagnosis for this admission?: Yes (4) Abnormal ultrasound of kidney Is this a current diagnosis for this admission?: Yes (5) Hypokalemia Is this a current diagnosis for this admission?: Yes - Additional Information Resuscitation Status: Full Code Discharge Diet: Regular Discharge Activity: Activity As Tolerated Home Medications: Bupropion HCl [Wellbutrin Xl 150 mg 24hr Tablet] 1 tab PO DAILY 01/25/17 Levofloxacin [Levaquin 750 mg Tablet] 750 mg PO DAILY #10 tab 01/28/17 Promethazine HCl [Phenergan 25 mg Tablet] 25 mg PO Q6HP PRN #15 tablet 01/28/17 History of Present Illness Patient complains of: Positive blood culture History of Present Illness: DANG BUENO is a 31 year old female with occasional urinary tract infection, but no history of nephrolithiasis or pyelonephritis who was seen in the emergency room on the 13 of this month and diagnosed with urinary tract infection and discharged home with prescription for oral Cipro. Has taken one dosage of the prescribed Cipro. Hospital Course Hospital Course: Patient was admitted with the diagnosis of sepsis, pyelonephritis, gram- negative bacteremia. She was treated with IV cefepime while awaiting further culture and improvement of clinical symptoms. Urine and blood cultures eventually grew E. coli sensitive to Levaquin. Once patient was afebrile for 24 hours she was discharged home on oral Levaquin. CT scan and renal ultrasound both showed abnormality in right kidney possibly consistent with focal area of nephritis, without drainable fluid collection. It was recommended the patient have follow-up ultrasound to ensure resolution. Patient is referred to Dr. Hurtado of urology for follow-up. She is discharged home in stable condition. Physical Exam Vital Signs: Temp Pulse Resp BP Pulse Ox 98.2 F 70 14 124/73 98 01/28/17 10:01 01/28/17 10:01 01/28/17 10:01 01/28/17 10:01 01/28/17 10:01 Intake & Output 01/27/17 01/28/17 01/29/17 06:59 06:59 06:59 Intake Total 2079 1724 300 Balance 2079 1723 300 Weight 61.5 kg 61.6 kg GENERAL: No acute distress HEENT: Conjunctiva clear, nonicteric, moist mucous membranes, no JVD, midline trachea RESPIRATORY: Clear to auscultation bilaterally, no wheezes, no rhonchi CARDIAC: Regular rate and rhythm, no murmurs/gallops/rubs ABDOMEN: Soft, nondistended, nontender, positive bowel sounds, no rebound, no guarding EXTREMETIES: No edema, cyanosis, clubbing NEUROLOGIC: Alert, oriented to person/place/time, CN's grossly intact, no focal deficits SKIN: No rash, wounds PSYCH: Normal mood, normal affect Results Laboratory Results: 01/26/17 04:04 01/26/17 04:04 01/27/17 08:56 Blood Culture - Preliminary Blood NO GROWTH IN 24 HOURS 01/27/17 07:43 Blood Culture - Preliminary Blood NO GROWTH IN 24 HOURS 01/24/17 10:47 Blood Culture - Final Blood Escherichia Coli 01/24/17 09:50 Blood Culture - Final Blood Escherichia Coli 01/24/17 09:45 Urine Culture - Final Clean Catch Midstream Escherichia Coli Labs- Last Values WBC 8.8 10^3/uL (4.0-10.5) 01/26/17 04:04 RBC 3.96 10^6/uL (3.72-5.28) 01/26/17 04:04 Hgb 12.3 g/dL (12.0-15.5) 01/26/17 04:04 Hct 36.2 % (36.0-47.0) 01/26/17 04:04 MCV 91 fl (80-97) 01/26/17 04:04 MCH 30.9 pg (27.0-33.4) 01/26/17 04:04 MCHC 33.9 g/dL (32.0-36.0) 01/26/17 04:04 RDW 13.7 % (11.5-14.0) 01/26/17 04:04 Plt Count 113 10^3/uL (150-450) L 01/26/17 04:04 Seg Neutrophils % 72.4 % (42-78) 01/26/17 04:04 Lymphocytes % 17.0 % (13-45) 01/26/17 04:04 Monocytes % 9.4 % (3-13) 01/26/17 04:04 Eosinophils % 0.8 % (0-6) 01/26/17 04:04 Basophils % 0.4 % (0-2) 01/26/17 04:04 Absolute Neutrophils 6.4 10^3/uL (1.7-8.2) 01/26/17 04:04 Absolute Lymphocytes 1.5 10^3/uL (0.5-4.7) 01/26/17 04:04 Absolute Monocytes 0.8 10^3/uL (0.1-1.4) 01/26/17 04:04 Absolute Eosinophils 0.1 10^3/uL (0.0-0.6) 01/26/17 04:04 Absolute Basophils 0.0 10^3/uL (0.0-0.2) 01/26/17 04:04 Sodium 136.4 mmol/L (137-145) L 01/26/17 04:04 Potassium 3.8 mmol/L (3.6-5.0) 01/26/17 04:04 Chloride 105 mmol/L (98-107) 01/26/17 04:04 Carbon Dioxide 21 mmol/L (22-30) L 01/26/17 04:04 Anion Gap 10 (5-19) 01/26/17 04:04 BUN 5 mg/dL (7-20) L 01/26/17 04:04 Creatinine 0.64 mg/dL (0.52-1.25) 01/26/17 04:04 Est GFR ( Amer) > 60 (>60) 01/26/17 04:04 Est GFR (Non-Af Amer) > 60 (>60) 01/26/17 04:04 Glucose 78 mg/dL (75-110) 01/26/17 04:04 Lactic Acid 0.8 mmol/L (0.7-2.1) 01/25/17 03:06 Calcium 9.3 mg/dL (8.4-10.2) 01/26/17 04:04 Magnesium 1.8 mg/dL (1.6-2.3) 01/26/17 04:04 Total Bilirubin 0.5 mg/dL (0.2-1.3) 01/26/17 04:04 Direct Bilirubin 0.3 mg/dL (0.0-0.4) 01/26/17 04:04 Indirect Bilirubin Not Reportable 01/26/17 04:04 Neonat Total Bilirubin Not Reportable 01/26/17 04:04 AST 18 U/L (14-36) 01/26/17 04:04 ALT 27 U/L (9-52) 01/26/17 04:04 Alkaline Phosphatase 82 U/L (38-126) 01/26/17 04:04 Total Protein 5.9 g/dL (6.3-8.2) L 01/26/17 04:04 Albumin 3.2 g/dL (3.5-5.0) L 01/26/17 04:04 Impressions: Abdomen/Pelvis CT 01/27/17 00:00 IMPRESSION: There is a slightly hypodense lesion in the upper pole the right kidney as described. This does not have apparent particularly suggestive of pyelonephritis. The appearance is not typical for renal cell carcinoma. Consider ultrasound for further evaluation. Renal Ultrasound 01/27/17 00:00 IMPRESSION: 3.4 cm rounded area of slightly increased echogenicity in the upper pole of the right kidney which correlates with the finding on CT scan. This could reflect a focal area of pyelonephritis in the appropriate clinical setting. Short interval follow-up imaging is recommended following treatment to confirm resolution. Qualifiers PATEINT BEING DISCHARGED WITH ANY OF THE FOLLOWING DIAGNOSIS?: No Plan Time Spent: Less than 30 Minutes
== END 2017-01-28 11:04 | disposition home or self-care (01) | DRG 872 ==
LOC: ER 01:02 → EH 04:36 → UNDOADMIN 04:36 → 3N 05:55 → EH 05:55 → 3N 07:34 → EH 07:34
PROVIDERS: ADMIT Family Medicine; ATTEND Family Medicine
DX: A41.9 Sepsis, unspecified organism (principal); N10 Acute pyelonephritis; E87.6 Hypokalemia; B96.20 Unspecified Escherichia coli [E. coli] as the cause of diseases classified elsewhere; E78.5 Hyperlipidemia, unspecified; D64.9 Anemia, unspecified; F32.9 Major depressive disorder, single episode, unspecified; F41.1 Generalized anxiety disorder; F17.210 Nicotine dependence, cigarettes, uncomplicated; Z90.49 Acquired absence of other specified parts of digestive tract
CPT/HCPCS: 36415; 74176; 74177; 76775; 80048; 80076; 83605; 83735; 85025; 87040; 94799; 96361; 96365; 96375; 99285; J0692; J0696; J1170; J1650; J2270; J2405; J3010; J7120

== ENCOUNTER 2017-03-11 09:11 | Emergency (ER) | payer OTHER ==
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
[2017-03-11] MEDS ORDERED: IBUPROFEN 600 MG TABLET PO ONE (11:01)
[2017-03-11] MEDS ORDERED: OXYCODONE-ACETAMINOPHEN 5-325 MG TABLET PO ONE (11:01)
[2017-03-11] MEDS ORDERED: PROMETHAZINE HCL 25 MG TABLET PO ONE (11:03)
[2017-03-11] MEDS ORDERED: HYDROCODONE/ACETAMINOPHEN 5-325 MG TABLET PO ONE (11:04)
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
[2017-03-11 12:55] VITALS: BP 114/79
== END 2017-03-11 12:26 | disposition home or self-care (01) ==
LOC: ER 09:11
DX: S30.1XXA Contusion of abdominal wall, initial encounter (principal); S90.01XA Contusion of right ankle, initial encounter; S20.219A Contusion of unspecified front wall of thorax, initial encounter; S29.012A Strain of muscle and tendon of back wall of thorax, initial encounter; M25.571 Pain in right ankle and joints of right foot; N28.9 Disorder of kidney and ureter, unspecified; R10.30 Lower abdominal pain, unspecified; M54.2 Cervicalgia; V87.7XXA Person injured in collision between other specified motor vehicles (traffic), initial encounter
CPT/HCPCS: 71020; 74177; 99284

== ENCOUNTER 2017-03-16 09:20 | Emergency (ER) | payer OTHER ==
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
[2017-03-16] MEDS ORDERED: ACETAMINOPHEN 325 MG TABLET PO ONE (10:52)
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
--- NOTE | 2017-03-16 13:03 | EKG REPORT ---
SEVERITY:- NORMAL ECG - SINUS RHYTHM : Confirmed by: Timothy Tovar MD 16-Mar-2017 13:02:34
[2017-03-16 13:08] VITALS: BP 104/66
== END 2017-03-16 13:26 | disposition home or self-care (01) ==
LOC: ER 09:20
DX: S22.22XA Fracture of body of sternum, initial encounter for closed fracture (principal); S29.012A Strain of muscle and tendon of back wall of thorax, initial encounter; R10.9 Unspecified abdominal pain; M79.1 Myalgia; V87.7XXA Person injured in collision between other specified motor vehicles (traffic), initial encounter; F17.200 Nicotine dependence, unspecified, uncomplicated
CPT/HCPCS: 71260; 93005; 93010; 99284

== ENCOUNTER → 2017-03-21 | Outpatient (CLI) | payer OTHER ==
[2017-03-21 18:35] LABS: ABSOLUTE EOSINOPHILS # (AUTO) 0.3 10^3/uL (0.0-0.6); ABSOLUTE LYMPHOCYTES (AUTO) 1.4 10^3/uL (0.5-4.7); ABSOLUTE MONOCYTES (AUTO) 0.4 10^3/uL (0.1-1.4); ABSOLUTE NEUT (AUTO) 2.2 10^3/uL (1.7-8.2); BASOPHILS % (AUTO) 0.7 % (0-2); EOSINOPHILS % (AUTO) 5.7 % (0-6); HEMATOCRIT 40.2 % (36.0-47.0); HEMOGLOBIN 13.9 g/dL (12.0-15.5); HGB HCT DIFFERENCE 1.5; LYMPHOCYTES % (AUTO) 32.5 % (13-45); MEAN CORPUSCULAR HGB CONC 34.6 g/dL (32.0-36.0); MEAN CORPUSCULAR VOLUME 93 fl (80-97); MONOCYTES % (AUTO) 9.9 % (3-13); RED BLOOD COUNT 4.34 10^6/uL (3.72-5.28); RED CELL DISTRIBUTION WIDTH 13.3 % (11.5-14.0); SEGMENTED NEUTROPHILS % (AUTO) 51.2 % (42-78); WHITE BLOOD COUNT 4.4 10^3/uL (4.0-10.5)
[2017-03-21 19:01] LABS: ALANINE AMINOTRANSFERASE 28 U/L (9-52); ALBUMIN 4.5 g/dL (3.5-5.0); ALKALINE PHOSPHATASE 86 U/L (38-126); ANION GAP 11 (5-19); ASPARTATE AMINO TRANSFERASE 21 U/L (14-36); BILIRUBIN,DIRECT 0.4 mg/dL (0.0-0.4); BILIRUBIN,TOTAL 0.5 mg/dL (0.2-1.3); BLOOD UREA NITROGEN 7 mg/dL (7-20); CALCIUM 10.4 mg/dL (8.4-10.2); CARBON DIOXIDE 24 mmol/L (22-30); CHLORIDE 105 mmol/L (98-107); CREATINE KINASE 55 U/L (30-135); CREATININE RESULT 0.64 mg/dL (0.52-1.25); GLUCOSE 83 mg/dL (75-110); POTASSIUM 4.4 mmol/L (3.6-5.0); SODIUM 139.6 mmol/L (137-145); TOTAL PROTEIN 7.6 g/dL (6.3-8.2)
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
== END ==
LOC: LAB 18:15
PROVIDERS: ATTEND Nurse Practitioner Family
DX: M25.571 Pain in right ankle and joints of right foot (principal); M62.82 Rhabdomyolysis
CPT/HCPCS: 36415; 80053; 82550; 85025

== ENCOUNTER → 2019-04-08 | Outpatient (CLI) | payer OTHER ==
[2019-04-08 11:09] LABS: BACTERIA (WET MOUNT) 3+ BACTERIA SEEN; EPITHELIALS (WET MOUNT) 3+ EPITHELIALS SEEN; RBCS (WET MOUNT) 2+ RBCS SEEN; T.VAGINALIS (WET MOUNT) NO TRICHOMONAS SEEN; WBCS (WET MOUNT) FEW WBCS SEEN; YEAST (WET MOUNT) NO YEAST SEEN
[2019-04-08 12:45] LABS: CHLAM PCR NOT DETECTED (NOT DETECT)
== END ==
LOC: LAB 10:54
PROVIDERS: ATTEND Nurse Practitioner Family
DX: N89.8 Other specified noninflammatory disorders of vagina (principal); R30.0 Dysuria; Z11.3 Encounter for screening for infections with a predominantly sexual mode of transmission
CPT/HCPCS: 87086; 87210; 87491; 87591